=== PATIENT | female | born 1980 ===

== ENCOUNTER 2017-10-29 02:43 | Emergency (ER) | payer MEDICAID ==
[2017-10-29 02:46] VITALS: BMI 24.8
--- NOTE | 2017-10-29 03:10 | ED PDOC ---
Arrival/HPI <Brenton Braun - Last Filed: 10/29/17 04:18> <Arron Thrasher - Last Filed: 10/29/17 04:23> - General Chief Complaint: Flu-like Symptoms - History of Present Illness Narrative History of Present Illness (Text): 10/29/17 03:06 Pt is a 37 yo F with PMH of asthma and anemia presents to ED with flu-like symptoms. Pt states that her daughter has been sick and was diagnosed yesterday with the flu by her wire winder. Pt was also seen by the wire winder and was told she had strep throat. Pt was prescribed clarithromycin and mucinex. Pt has only taken one dose of each medication, but started to feel worse and came to ED for evaluation. Pt complains of temporal sinus pressure, nasal congestion, sore throat, dry cough, shortness of breath, diarrhea, body aches, LIN, nausea, decreased appetite, and subjective fever. Pt denied CP, vomiting, abdominal pain , dysuria, dizziness, or ear pain. (Brenton Braun) Past Medical History - Provider Review Nursing Documentation Reviewed: Yes - Cardiac Hx Cardiac Disorders: No - Pulmonary Hx Asthma: Yes - Neurological Hx Neurological Disorder: No - HEENT Hx HEENT Disorder: No - Renal Hx Renal Disorder: No - Endocrine/Metabolic Hx Endocrine Disorders: No - Hematological/Oncological Hx Blood Disorders: No - Integumentary Hx Dermatological Disorder: No - Musculoskeletal/Rheumatological Hx Musculoskeletal Disorders: No - Gastrointestinal Hx Gastrointestinal Disorders: No - Genitourinary/Gynecological Hx Genitourinary Disorders: No - Psychiatric Hx Psychophysiologic Disorder: No Hx Substance Use: No <Brenton Braun - Last Filed: 10/29/17 04:18> Family/Social History - Physician Review Nursing Documentation Reviewed: Yes Family/Social History: No Known Family HX Smoking Status: Never Smoked Hx Alcohol Use: No Hx Substance Use: No <Brenton Braun - Last Filed: 10/29/17 04:18> Allergies/Home Meds <Brenton Braun - Last Filed: 10/29/17 04:18> <Arron Thrasher - Last Filed: 10/29/17 04:23> Allergies/Adverse Reactions: Allergies No Known Allergies Allergy (Verified 10/29/17 02:46) Home Medications: Home Meds Medication Instructions Recorded Confirmed Clarithromycin [Biaxin Filmtab] 250 mg PO BID 10/29/17 10/29/17 guaiFENesin/Dextromethorphan 1 tab PO Q12 10/29/17 10/29/17 [guaiFENesin/DM 600-30 mg] Review of Systems - Physician Review All systems were reviewed & negative as marked: Yes - Review of Systems Constitutional: Fatigue, Fevers Eyes: Normal ENT: Sore Throat, Sinus Congestion Respiratory: SOB, Cough. absent: Sputum, Wheezing Cardiovascular: Normal Gastrointestinal: Diarrhea, Nausea. absent: Abdominal Pain, Vomiting Genitourinary Female: Normal Musculoskeletal: Myalgias Skin: Normal Neurological: Normal Endocrine: Normal Hemo/Lymphatic: Normal Psychiatric: Normal <Brenton Braun - Last Filed: 10/29/17 04:18> Physical Exam Vital Signs Reviewed: Yes Temperature: Febrile Blood Pressure: Normal Pulse: Regular Respiratory Rate: Normal Appearance: Positive for: Ill-Appearing Pain Distress: None Mental Status: Positive for: Alert and Oriented X 3 - Systems Exam Head: Present: Atraumatic, Normocephalic, Tenderness (temporal sinuses) Extroacular Muscles: Present: EOMI Conjunctiva: Present: Normal Ears: Present: Normal Mouth: Present: Moist Mucous Membranes Pharnyx: Present: ERYTHEMA, TONSILS ENLARGED. No: EXUDATE, Uvular Deviation, Muffled/Hoarse Voice Nose (External): Present: Atraumatic, Other (erythema) Nose (Internal): Present: Boggy Neck: Present: Normal Range of Motion Respiratory/Chest: Present: Clear to Auscultation. No: Respiratory Distress, Wheezes, Rales, Rhonchi Cardiovascular: Present: Regular Rate and Rhythm, Normal S1, S2. No: Murmurs, Rub, Gallop Abdomen: No: Tenderness, Distention, Peritoneal Signs, Rebound, Guarding Back: Present: Normal Inspection Upper Extremity: Present: Normal Inspection Lower Extremity: Present: Normal Inspection Neurological: Present: GCS=15, CN II-XII Intact Skin: Present: Warm, Dry, Normal Color Psychiatric: Present: Alert, Oriented x 3 <Brenton Braun - Last Filed: 10/29/17 04:18> Vital Signs Temp Pulse Resp BP Pulse Ox 10/29/17 03:43 88 17 124/86 97 02/23/18 03:17 100.1 F H 02/23/18 02:47 100.1 F H 99 H 20 114/66 96 Medical Decision Making <Brenton Braun - Last Filed: 10/29/17 04:18> <Arron Thrsaher - Last Filed: 10/29/17 04:23> ED Course and Treatment: 10/29/17 03:12 Assessment: 37 yo F with PMH of ashtma and anemia presents to ED with flu-lik symptoms. Plan: - Labs - Rapid strep - Influenza swab - Tylenol 10/29/17 04:00 Influenza and rapid strep test negative. 10/29/17 04:12 Discussed results with patient. Despite negative influenza result, will treat with Tamiflu due to possible false negative. Advised patient to maintain adequate hydration and complete course of antibiotics already prescribed to her. Symptomatic management with Flonase, tylenol, and mucinex. (Brenton Braun) 10/29/17 03:19: Amanda Malloy is a 37 year old female who presents to the emergency department complaining of flu-like symptoms. In agreement with resident note, which includes further HPI details. Patient was seen and evaluated with resident, came up with plan and treatment together. (Arron Thrasher) - Lab Interpretations Lab Results: 10/29/17 03:19 10/29/17 03:19 Lab Results 10/29/17 03:19: Grp A Beta Strep Ag Negative 10/29/17 03:19: Sodium 138, Potassium 3.8, Chloride 102, Carbon Dioxide 23, Anion Gap 17, BUN 9, Creatinine 0.7, Est GFR ( Amer) > 60, Est GFR (Non- Af Amer) > 60, Random Glucose 110, Calcium 9.2, Total Bilirubin 0.5, AST 29, ALT 31, Alkaline Phosphatase 65, Total Protein 7.6, Albumin 4.2, Globulin 3.4, Albumin/Globulin Ratio 1.2 10/29/17 03:19: WBC 5.3, RBC 4.26, Hgb 12.9, Hct 39.9, MCV 93.7, MCH 30.3, MCHC 32.3, RDW 12.7, Plt Count 255, MPV 10.5, Gran % 82.0 H, Lymph % (Auto) 8.5 L, [place] % (Auto) 8.7 H, Eos % (Auto) 0.6 L, Baso % (Auto) 0.2, Gran # 4.33, Lymph # (Auto) 0.5 L, [place] # (Auto) 0.5, Eos # (Auto) 0.0, Baso # (Auto) 0.01 10/29/17 03:19: Influenza Typ A,B (EIA) Negative for flu a/b - Medication Orders Current Medication Orders: Discontinued Medications Acetaminophen (Tylenol 325mg Tab) 650 mg PO STAT STA Stop: 10/29/17 03:06 Last Admin: 10/29/17 03:17 Dose: 650 mg MAR Pain/Vitals Document 10/29/17 03:17 IT (Rec: 10/29/17 03:17 IT [facility] [id number]) Pain Reassessment Is This A Pain ReAssessment? No Sleep Is patient sleeping during reassessment? No Presence of Pain Presence of Pain Yes Vitals Temperature (97.6 F-99.6 F) 100.1 F Temperature Source Oral Dexamethasone (Decadron Inj) 10 mg IVP STAT STA Stop: 10/29/17 03:31 Last Admin: 10/29/17 03:40 Dose: 10 mg IVP Administration Document 10/29/17 03:40 IT (Rec: 10/29/17 03:40 IT [facility] [id number]) Charges for Administration # of IVP Administrations 1 Oseltamivir Phosphate (Tamiflu Cap) 75 mg PO STAT STA PRN Reason: Protocol Stop: 10/29/17 04:13 Last Admin: 10/29/17 04:21 Dose: 75 mg - PA / LEARNING TECHNOLOGIST / Resident Statement STACIE has reviewed & agrees with the documentation as recorded. STACIE has examined the patient and agrees with the treatment plan. <Arron Thrasher - Last Filed: 10/29/17 04:23> Disposition/Present on Arrival - Present on Arrival Any Indicators Present on Arrival: No History of DVT/PE: No History of Uncontrolled Diabetes: No Urinary Catheter: No History of Decub. Ulcer: No History Surgical Site Infection Following: None - Disposition Have Diagnosis and Disposition been Completed?: Yes Disposition Time: 04:02 Patient Plan: Discharge <Brenton Braun - Last Filed: 10/29/17 04:18> <Arron Thrasher - Last Filed: 10/29/17 04:23> - Disposition Diagnosis: URI (upper respiratory infection) Disposition: HOME/ ROUTINE Patient Problems: Current Active Problems Problem Status Onset URI (upper respiratory infection) Acute Condition: STABLE Discharge Instructions (ExitCare): Viral Upper Respiratory Infection, Adult (DC ) Additional Instructions: 1. Complete 5 day course of Tamiflu 2. Complete antibiotics from PMD 3. Maintain adequate hydration 4. Increase diet as tolerated 5. Use over the counter tylenol for fever/body aches 6. Use Flonase as needed for nasal congestion 7. Follow up with PMD Prescriptions: Fluticasone Nasal [Flonase] 1 spr NS DAILY PRN #1 bottle PRN Reason: Sinus Symptoms Oseltamivir Phosphate [Tamiflu] 75 mg PO BID #9 capsule Forms: [employer] ([place]), WORK NOTE
[2017-10-29 03:43] VITALS: RESP 17
[2017-10-29 03:43] LABS: ALB/GLOB RATIO 1.2 (1.1-1.8); ALBUMIN 4.2 g/dL (3.0-4.8); ALT/SGPT 31 U/L (7-56); AST/SGOT 29 U/L (14-36); BLOOD UREA NITROGEN 9 mg/dL (7-21); CALCIUM 9.2 mg/dL (8.4-10.5); GFR AFRICAN-AMERICAN > 60; GFR NON-AFRICAN AMERICAN > 60
[2017-10-29 03:59] LABS: BASO # 0.01 K/mm3 (0.0-2.0); BASO % 0.2 % (0.0-3.0); EOS % 0.6 % (1.5-5.0); GRAN # 4.33 (1.4-6.5); HEMOGLOBIN 12.9 g/dL (12.0-16.0); LYMPH # 0.5 (1.2-3.4); LYMPH % 8.5 % (22.0-35.0); MEAN CELL VOLUME 93.7 fl (80.0-105.0); MEAN CORPUSCULAR HEMOGLOBIN 30.3 pg (25.0-35.0); MEAN CORPUSCULAR HGB CONC 32.3 g/dl (31.0-37.0); MEAN PLATELET VOLUME 10.5 fl (7.0-11.0); MONO # 0.5 (0.1-0.6); MONO % 8.7 % (1.0-6.0); RBC 4.26 10^6/uL (3.5-6.1); RED CELL DISTRIBUTION WIDTH 12.7 % (11.5-14.5); WHITE BLOOD COUNT 5.3 10^3/ul (4.5-11.0)
[2017-10-29 04:25] VITALS: BP 115/75; PULSE 82; TEMP 99.1; O2SAT 98
== END 2017-10-29 04:25 | disposition home or self-care (01) ==
LOC: ED 02:43 → MERGE 02:43 → ED 04:25
DX: J06.9 Acute upper respiratory infection, unspecified (principal)
CPT/HCPCS: 80053; 85025; 87070; 87430; 87804; 96374; 99284; J1100

== ENCOUNTER 2017-11-17 20:08 | Inpatient (IN) | payer MEDICAID, OTHER ==
[2017-11-17 20:14] VITALS: BMI 27.0
[2017-11-17] MEDS: Albuterol-Ipratrop 3 mg / 0.5 (3 ml) UD IH SCH ×3 (21:10→21:44)
[2017-11-17 21:40] LABS: BASO # 0.01 K/mm3 (0.0-2.0); BASO % 0.2 % (0.0-3.0); EOS % 0.6 % (1.5-5.0); GRAN # 4.18 (1.4-6.5); GRAN % 80.8 % (50.0-68.0); HEMOGLOBIN 11.9 g/dL (12.0-16.0); LYMPH # 0.6 (1.2-3.4); LYMPH % 11.4 % (22.0-35.0); MEAN CELL VOLUME 89.1 fl (80.0-105.0); MEAN CORPUSCULAR HEMOGLOBIN 29.6 pg (25.0-35.0); MEAN CORPUSCULAR HGB CONC 33.2 g/dl (31.0-37.0); MONO # 0.4 (0.1-0.6); RBC 4.02 10^6/uL (3.5-6.1); RED CELL DISTRIBUTION WIDTH 12.7 % (11.5-14.5); WHITE BLOOD COUNT 5.2 10^3/ul (4.5-11.0)
[2017-11-17 21:56] LABS: ALB/GLOB RATIO 1.2 (1.1-1.8); ALBUMIN 3.8 g/dL (3.0-4.8); ALT/SGPT 24 U/L (7-56); AST/SGOT 27 U/L (14-36); BLOOD UREA NITROGEN 5 mg/dL (7-21); CALCIUM 9.7 mg/dL (8.4-10.5); GFR AFRICAN-AMERICAN > 60; GFR NON-AFRICAN AMERICAN > 60
[2017-11-17] MEDS ORDERED: Sodium Chloride 0.9% 1,000 ML IV STA (22:01)
--- NOTE | 2017-11-17 22:01 | ED PDOC ---
Arrival/HPI - General Historian: Patient - History of Present Illness Symptom Course: Unchanged Activities at Onset: Rest - General Chief Complaint: Shortness Of Breath Time Seen by Provider: 11/17/17 20:20 - History of Present Illness Narrative History of Present Illness (Text): 11/17/17 21:58 Patient is a 37F with a PMH of asthma and recent hospitalization for flu like symptoms. The SOB started today at work and was not associated with any chest pain. She left work and took a nebulized albuterol that she has at home but that did not help her at all. She also took some robitussin with no relief. This SOB has been constant since its onset so she came to the ED. Denies any sick contact or recent travel. No nausea, vomiting, diarrhea, constipation. Patient denies fevers but has been having shaky chills in the ED. (Young Baird) Past Medical History - Infectious Disease Hx of Infectious Diseases: None - Cardiac Hx Cardiac Disorders: No - Pulmonary Hx Asthma: Yes - Neurological Hx Neurological Disorder: No - HEENT Hx HEENT Disorder: No - Renal Hx Renal Disorder: No - Endocrine/Metabolic Hx Endocrine Disorders: No - Hematological/Oncological Hx Anemia: Yes - Integumentary Hx Dermatological Disorder: No - Musculoskeletal/Rheumatological Hx Musculoskeletal Disorders: No - Gastrointestinal Hx Gastrointestinal Disorders: No - Genitourinary/Gynecological Hx Genitourinary Disorders: No - Psychiatric Hx Psychophysiologic Disorder: No Hx Substance Use: No - Surgical History Hx Dilation and Curettage: Yes Other/Comment: sinus surgery. breast cyst - Anesthesia Hx Anesthesia: Yes Hx Anesthesia Reactions: No Hx Malignant Hyperthermia: No Family/Social History Smoking Status: Never Smoked Hx Alcohol Use: No Hx Substance Use: No Allergies/Home Meds Allergies/Adverse Reactions: Allergies No Known Allergies Allergy (Verified 10/29/17 02:46) Home Medications: Home Meds Medication Instructions Recorded Confirmed Albuterol 0.083% [Albuterol 0.083% 1 vial IH QID 11/17/17 11/17/17 Inhal Beena (2.5 mg/3 ml) UD] Albuterol HFA [Ventolin HFA 90 1 puff IH QID PRN 11/17/17 11/17/17 mcg/actuation (8 g)] Review of Systems - Review of Systems Constitutional: absent: Weight Change, Fevers Eyes: Normal ENT: Normal Respiratory: SOB, Cough. absent: Sputum, Wheezing Cardiovascular: absent: Chest Pain Gastrointestinal: Normal Genitourinary Female: Normal Musculoskeletal: Normal Skin: Normal Neurological: Normal Endocrine: Normal Hemo/Lymphatic: Normal Psychiatric: Normal Physical Exam Temperature: Febrile Blood Pressure: Hypotensive Pulse: Tachycardic Respiratory Rate: Tachypneic Appearance: Positive for: Ill-Appearing Pain Distress: None Mental Status: Positive for: Alert and Oriented X 3 - Systems Exam Head: Present: Atraumatic Pupils: Present: PERRL Extroacular Muscles: Present: EOMI Conjunctiva: Present: Normal Mouth: Present: Dry Neck: Present: Normal Range of Motion Respiratory/Chest: Present: Clear to Auscultation, Good Air Exchange. No: Accessory Muscle Use, Wheezes Cardiovascular: Present: Tachycardic Abdomen: Present: Normal Bowel Sounds. No: Tenderness, Distention, Peritoneal Signs Upper Extremity: Present: Normal Inspection. No: Cyanosis Lower Extremity: Present: Normal Inspection. No: Edema Neurological: Present: GCS=15, CN II-XII Intact Skin: Present: Warm, Dry, Normal Color. No: Rashes Psychiatric: Present: Alert, Oriented x 3 Vital Signs Temp Pulse Resp BP 11/17/17 20:14 101.8 F H 115 H 18 108/58 L Medical Decision Making ED Course and Treatment: 11/17/17 22:26 Patient Seen With Resident: In agreement with resident note which contains more details about the patient. Patient was seen and evaluated with resident. Came up with plan and treatment together. (Lm Hall) - Lab Interpretations Lab Results: 11/17/17 21:05 11/17/17 21:05 Lab Results 11/17/17 21:05: Sodium 139, Potassium 3.5 L, Chloride 105, Carbon Dioxide 24, Anion Gap 14, BUN 5 L, Creatinine 0.6 L, Est GFR ( Amer) > 60, Est GFR ( Non-Af Amer) > 60, Random Glucose 104, Calcium 9.7, Total Bilirubin 0.3, AST 27 , ALT 24, Alkaline Phosphatase 57, Total Protein 7.0, Albumin 3.8, Globulin 3.2 , Albumin/Globulin Ratio 1.2 11/17/17 21:05: WBC 5.2, RBC 4.02, Hgb 11.9 L, Hct 35.8 L, MCV 89.1 D, MCH 29.6 , MCHC 33.2, RDW 12.7, Plt Count 250, MPV 10.0, Gran % 80.8 H, Lymph % (Auto) 11.4 L, [place] % (Auto) 7.0 H, Eos % (Auto) 0.6 L, Baso % (Auto) 0.2, Gran # 4.18 , Lymph # (Auto) 0.6 L, [place] # (Auto) 0.4, Eos # (Auto) 0.0, Baso # (Auto) 0.01 - RAD Interpretation Radiology Orders: 11/17/17 20:46 CHEST PORTABLE [RAD] Stat - Medication Orders Current Medication Orders: Sodium Chloride (Sodium Chloride 0.9%) 1,000 mls @ 999 mls/hr IV .Q1H1M STA Stop: 11/17/17 23:01 Vancomycin HCl (Vancomycin 1gm) 1 gm in 250 mls @ 167 mls/hr IVPB STAT STA PRN Reason: Protocol Stop: 11/17/17 23:34 Piperacillin Sod/Tazobactam Sod (Zosyn 3.375 In Ns 100ml) 100 mls @ 200 mls/hr IVPB STAT STA PRN Reason: Protocol Stop: 11/17/17 22:34 Lactated Ringer's (Lactated Ringer's) 1,000 mls @ 999 mls/hr IV .Q1H1M CHRISTO Lactated Ringer's (Lactated Ringer's) 1,000 mls @ 999 mls/hr IV .Q1H1M CHRISTO Potassium Chloride (K-Dur 20 Meq Er Tab) 40 meq PO STAT STA Stop: 11/17/17 22:26 Discontinued Medications Albuterol/Ipratropium (Duoneb 3 Mg/0.5 Mg (3 Ml) Ud) 3 ml IH Q15M CHRISTO Stop: 11/17/17 21:31 Last Admin: 11/17/17 21:44 Dose: 3 ml Azithromycin (Zithromax) 500 mg PO STAT STA PRN Reason: Protocol Stop: 11/17/17 20:47 Last Admin: 11/17/17 21:43 Dose: 500 mg Methylprednisolone (Solu-Medrol) 125 mg IVP STAT STA Stop: 11/17/17 20:48 Last Admin: 11/17/17 21:43 Dose: 125 mg IVP Administration Document 11/17/17 21:43 SS (Rec: 11/17/17 21:43 SS [facility] [id number] Charges for Administration # of IVP Administrations 1 Disposition/Present on Arrival - Present on Arrival History of DVT/PE: No History of Uncontrolled Diabetes: No Urinary Catheter: No History of Decub. Ulcer: No History Surgical Site Infection Following: None - Disposition Referrals: [facility] Deepika Refeliberto, [Primary Care Provider] - Follow up with primary Forms: [employer] ([place])
[2017-11-17] MEDS ORDERED: cefTRIAXone 1 gm 1 GM/100 ML BAG IVPB STA (22:03)
[2017-11-17] MEDS ORDERED: Piperacillin/Tazobact 3.375 gm 100 ML IVPB STA (22:05)
[2017-11-17] MEDS ORDERED: Vancomycin 1gm in NS 250ml 1 GM/250 ML BAG IVPB STA (22:05)
[2017-11-17] MEDS ORDERED: Lactated Ringer's 1,000 ML IV SCH (22:30)
[2017-11-17] MEDS ORDERED: Albuterol-Ipratrop 3 mg / 0.5 (3 ml) UD IH PRN (22:43)
[2017-11-17] MEDS: Potassium Chloride 20 mEq ER Tab PO STA ×2 (22:49→22:53)
[2017-11-17] MEDS ORDERED: guaiFENesin DM 100 mg-10 mg/5 ml UD PO PRN (22:51)
[2017-11-17 22:52] LABS: VENOUS BLOOD GAS PO2 158 mm/Hg (30-55); VENOUS BLOOD PH 7.48 (7.32-7.43)
[2017-11-17] MEDS: Lactated Ringer's 1,000 ML IV SCH (22:52)
[2017-11-17 23:44] LABS: PH,URINE 8.5 (4.7-8.0); URINE BILIRUBIN NEGATIVE (NEGATIVE); URINE BLOOD NEGATIVE (NEGATIVE); URINE GLUCOSE (UA) NEGATIVE (NEGATIVE); URINE LEUKOCYTE ESTERASE NEGATIVE Leu/uL (NEGATIVE); URINE PROTEIN NEGATIVE mg/dL (<30 mg/dL)
[2017-11-17 23:45] LABS: URINE APPEARANCE SL CLOUDY (CLEAR); URINE COLOR YELLOW (YELLOW)
[2017-11-17 23:47] LABS: HCG,QUALITATIVE URINE NEGATIVE (NEGATIVE)
--- NOTE | 2017-11-18 00:52 | CP.PCM.HP ---
<Michel Johnson - Last Filed: 11/18/17 01:39> History of Present Illness - History of Present Illness History of Present Illness: Michel Johnson PGY1 H&P Note for Hospitalist Service cc: sob and feeling sick x2 days Ms. Malloy is a 37yo F with a PMH of asthma and anemia who presents with a cough, shortness of breath, generalized body aches and some chest discomfort since Wednesday with fevers that developed today. she states that her daughter at home has also been sick with similar complaints. she is nauseous but denies vomiting or diarrhea. she denies recent travel. Of note, the patient was seen in ED 3 weeks ago for similar symptoms and was d/c with Flonase and Tamiflu. 12- pt ROS was reviewed and is otherwise unremarkable. PMH: as above PSH: D&C for cyst removal, benign breast cyst excision, nose surgery Meds: tried robitussin but didn't help NKDA SHx: denies tobacco, ETOH and illicit drug use Present on Admission - Present on Admission Any Indicators Present on Admission: No Review of Systems - Review of Systems All systems: reviewed and no additional remarkable complaints except (as per HPI ) Past Patient History - Infectious Disease Hx of Infectious Diseases: None - Past Medical History & Family History Past Medical History?: Yes Past Family History: Reviewed and not pertinent - Past Social History Smoking Status: Never Smoked Alcohol: None Drugs: Denies Home Situation {Lives}: With Family - CARDIAC Hx Cardiac Disorders: No - PULMONARY Hx Asthma: Yes - NEUROLOGICAL Hx Neurological Disorder: No - HEENT Hx HEENT Problems: No - RENAL Hx Chronic Kidney Disease: No - ENDOCRINE/METABOLIC Hx Endocrine Disorders: No - HEMATOLOGICAL/ONCOLOGICAL Hx Anemia: Yes - INTEGUMENTARY Hx Dermatological Problems: No - MUSCULOSKELETAL/RHEUMATOLOGICAL Hx Musculoskeletal Disorders: No - GASTROINTESTINAL Hx Gastrointestinal Disorders: No - GENITOURINARY/GYNECOLOGICAL Hx Genitourinary Disorders: No - PSYCHIATRIC Hx Psychophysiologic Disorder: No Hx Substance Use: No - SURGICAL HISTORY Hx Surgeries: Yes Hx Breast Biopsy: Yes Hx Dilation and Curettage: Yes Other/Comment: sinus surgery. breast cyst - ANESTHESIA Hx Anesthesia: Yes Hx Anesthesia Reactions: No Hx Malignant Hyperthermia: No Meds Allergies/Adverse Reactions: Allergies Allergy/AdvReac Type Severity Reaction Status Date / Time No Known Allergies Allergy Verified 10/29/17 02:46 Physical Exam - Constitutional Appears: Toxic, No Acute Distress - Head Exam Head Exam: NORMAL INSPECTION - Eye Exam Eye Exam: EOMI, Normal appearance, PERRL - ENT Exam ENT Exam: Mucous Membranes Moist - Neck Exam Neck exam: Positive for: Normal Inspection - Respiratory Exam Respiratory Exam: NORMAL BREATHING PATTERN. absent: Rales, Rhonchi, Wheezes - Cardiovascular Exam Cardiovascular Exam: Tachycardia, +S1, +S2 - GI/Abdominal Exam GI & Abdominal Exam: Soft. absent: Distended, Tenderness - Extremities Exam Extremities exam: Positive for: normal inspection. Negative for: pedal edema - Back Exam Back exam: NORMAL INSPECTION - Neurological Exam Neurological exam: Alert, CN II-XII Intact, Oriented x3 - Psychiatric Exam Psychiatric exam: Normal Affect, Normal Mood - Skin Skin Exam: Normal Color, Warm Results - Vital Signs Recent Vital Signs: Last Vital Signs Temp 101.8 F H 11/17/17 20:14 Pulse 123 H 11/17/17 23:35 Resp 20 11/17/17 23:35 BP 110/88 11/17/17 23:35 Pulse Ox 98 11/17/17 23:35 - Labs Result Diagrams: 11/17/17 21:05 11/17/17 21:05 Assessment & Plan - Assessment and Plan (Free Text) Assessment: 37yo F with a PMH of anemia and asthma presenting w/ flu-like symptoms found to have sepsis 2/2 influeza. CODE SEPSIS was not called in the ED but was on the floors. Plan: 1. Sepsis 2/2 Influeza - lactate 4.6, tachycardia and fever noted - Vanc, Zosyn and Zithromax given in ED - has received 2L LR and 1L NS boluses - CXR showed some congestion - CT chest ordered by ED - will cont Zithromax - start Tamiflu - cont NS @ 150 - tylenol prn fevers - no leukocytosis noted - robitussin prn - droplet isolation for precautions - ID consulted, recs appreciated 2. Hx asthma - given solumedrol and duoneb tx in ED - no wheezing or respiratory distress noted at this time - cont duoneb CHRISTO and PRN 3. Hx Anemia - H/H is stable - cont to monitor 4. Hypokalemia - repleted - continue to monitor for electrolyte abnormalities Regular diet PTX/SCDs for GI/DVT ppx Patient was seen, examined and discussed with attending, Dr. Sveta Johnson PGY1 <Gato Turcios N - Last Filed: 11/19/17 00:16> Results - Vital Signs Recent Vital Signs: Last Vital Signs Temp 98.1 F 11/18/17 22:51 Pulse 79 11/18/17 22:51 Resp 16 11/18/17 22:51 BP 112/73 11/18/17 22:51 Pulse Ox 95 11/18/17 22:51 - Labs Result Diagrams: 11/18/17 05:00 11/18/17 05:00 Labs: Laboratory Results - last 24 hr 11/18/17 11/18/17 11/18/17 01:42 01:45 05:00 WBC 7.0 D RBC 3.75 Hgb 11.1 L Hct 33.4 L MCV 89.1 MCH 29.6 MCHC 33.2 RDW 12.8 Plt Count 227 MPV 9.7 PT INR pO2 72 H VBG pH 7.39 VBG pCO2 34.0 L VBG HCO3 20.6 L VBG Total CO2 21.6 L VBG O2 Sat (Calc) 96.7 H VBG Base Excess -3.6 L VBG Potassium 3.6 Sodium 137.0 Chloride 108.0 H Glucose 153 H Lactate 4.5 H* FiO2 21.0 Potassium Carbon Dioxide Anion Gap BUN Creatinine Est GFR ( Amer) Est GFR (Non-Af Amer) POC Glucose (mg/dL) 137 H Random Glucose Calcium Iron TIBC % Saturation Transferrin Ferritin Total Bilirubin AST ALT Alkaline Phosphatase Total Protein Albumin Globulin Albumin/Globulin Ratio Vitamin B12 Folate Venous Blood Potassium 3.6 Ur L.pneumophila Ag 11/18/17 11/18/17 11/18/17 05:00 05:00 05:00 WBC RBC Hgb Hct MCV MCH MCHC RDW Plt Count MPV PT 15.8 H INR 1.37 H pO2 196 H VBG pH 7.37 VBG pCO2 38.0 L VBG HCO3 22.0 VBG Total CO2 23.2 VBG O2 Sat (Calc) 99.2 H VBG Base Excess -2.9 L VBG Potassium 3.9 Sodium 140 136.0 Chloride 106 109.0 H Glucose 166 H Lactate 3.0 H FiO2 21.0 Potassium 4.0 Carbon Dioxide 22 Anion Gap 16 BUN 4 L Creatinine 0.5 L Est GFR ( Amer) > 60 Est GFR (Non-Af Amer) > 60 POC Glucose (mg/dL) Random Glucose 157 H Calcium 9.3 Iron TIBC % Saturation Transferrin Ferritin Total Bilirubin 0.3 AST 25 ALT 24 Alkaline Phosphatase 51 Total Protein 6.7 Albumin 3.5 Globulin 3.1 Albumin/Globulin Ratio 1.1 Vitamin B12 Folate Venous Blood Potassium 3.9 Ur L.pneumophila Ag 11/18/17 11/18/17 11/18/17 08:19 11:10 11:14 WBC RBC Hgb Hct MCV MCH MCHC RDW Plt Count MPV PT INR pO2 202 H VBG pH 7.38 VBG pCO2 38.0 L VBG HCO3 22.5 VBG Total CO2 23.7 VBG O2 Sat (Calc) 99.4 H VBG Base Excess -2.3 L VBG Potassium 3.9 Sodium 135.0 Chloride 108.0 H Glucose 148 H Lactate 2.4 H FiO2 21.0 Potassium Carbon Dioxide Anion Gap BUN Creatinine Est GFR ( Amer) Est GFR (Non-Af Amer) POC Glucose (mg/dL) Random Glucose Calcium Iron TIBC % Saturation Transferrin 273.30 Ferritin 19.9 Total Bilirubin AST ALT Alkaline Phosphatase Total Protein Albumin Globulin Albumin/Globulin Ratio Vitamin B12 484 Folate 19.9 Venous Blood Potassium 3.9 Ur L.pneumophila Ag 11/18/17 11/18/17 19:25 Unknown WBC RBC Hgb Hct MCV MCH MCHC RDW Plt Count MPV PT INR pO2 VBG pH VBG pCO2 VBG HCO3 VBG Total CO2 VBG O2 Sat (Calc) VBG Base Excess VBG Potassium Sodium Chloride Glucose Lactate FiO2 Potassium Carbon Dioxide Anion Gap BUN Creatinine Est GFR ( Amer) Est GFR (Non-Af Amer) POC Glucose (mg/dL) Random Glucose Calcium Iron 19 L TIBC 341 % Saturation 5 L Transferrin Ferritin Total Bilirubin AST ALT Alkaline Phosphatase Total Protein Albumin Globulin Albumin/Globulin Ratio Vitamin B12 Folate Venous Blood Potassium Ur L.pneumophila Ag Negative
--- NOTE | 2017-11-18 01:16 | CT ---
EXAM: CT Chest Without Intravenous Contrast CLINICAL HISTORY: 37 years old, female; Signs and symptoms; Cough; Symptoms not specified; Additional info: Possible infiltrate r. Middle lobe TECHNIQUE: Axial computed tomography images of the chest without intravenous contrast. All CT scans at this facility use one or more dose reduction techniques, viz.: automated exposure control; ma/kV adjustment per patient size (including targeted exams where dose is matched to indication; i.e. head); or iterative reconstruction technique. Coronal and sagittal reformatted images were created and reviewed. COMPARISON: - CHEST PORTABLE 2017-11-17 22:38 FINDINGS: Limitations: Lack of intravenous contrast. Motion artifact - mild to moderate. Lungs: Minimal peripheral atelectasis/scarring. No consolidation. Pleural space: No pneumothorax. No significant effusion. Heart: No cardiomegaly. No significant pericardial effusion. Bones/joints: No acute fracture. Soft tissues: Unremarkable. Vasculature: Unremarkable. No aneurysm. Lymph nodes: No pathologically enlarged lymph nodes. Kidneys and ureters: Apparent mild caliectasis of kidneys, incompletely imaged. IMPRESSION: 1. No definite CT evidence of pneumonia. 2. Incidental/non-acute findings are described above.
[2017-11-18] MEDS: Potassium Chloride 20 mEq ER Tab PO STA ×2 (01:29)
[2017-11-18 02:20] LABS: VENOUS BLOOD GAS BASE EXCESS -3.6 mmol/L (0.0-2.0); VENOUS BLOOD GAS PO2 72 mm/Hg (30-55); VENOUS BLOOD PH 7.39 (7.32-7.43)
[2017-11-18] MEDS ORDERED: Potassium Chloride 20 mEq ER Tab PO STA (02:24)
[2017-11-18 05:23] LABS: HEMOGLOBIN 11.1 g/dL (12.0-16.0); MEAN CELL VOLUME 89.1 fl (80.0-105.0); MEAN CORPUSCULAR HEMOGLOBIN 29.6 pg (25.0-35.0); MEAN CORPUSCULAR HGB CONC 33.2 g/dl (31.0-37.0); MEAN PLATELET VOLUME 9.7 fl (7.0-11.0); RBC 3.75 10^6/uL (3.5-6.1); RED CELL DISTRIBUTION WIDTH 12.8 % (11.5-14.5)
[2017-11-18] MEDS: Sodium Chloride 0.9% 1,000 ML IV SCH ×4 (05:40→21:18)
[2017-11-18] MEDS: Lactated Ringer's 1,000 ML IV SCH (05:41)
[2017-11-18 05:45] LABS: VENOUS BLOOD GAS BASE EXCESS -2.9 mmol/L (0.0-2.0); VENOUS BLOOD GAS PO2 196 mm/Hg (30-55); VENOUS BLOOD PH 7.37 (7.32-7.43)
[2017-11-18 05:46] LABS: ALB/GLOB RATIO 1.1 (1.1-1.8); ALBUMIN 3.5 g/dL (3.0-4.8); ALT/SGPT 24 U/L (7-56); AST/SGOT 25 U/L (14-36); BLOOD UREA NITROGEN 4 mg/dL (7-21); CALCIUM 9.3 mg/dL (8.4-10.5); GFR AFRICAN-AMERICAN > 60; GFR NON-AFRICAN AMERICAN > 60
[2017-11-18 05:48] LABS: INR 1.37 (0.93-1.08); PROTHROMBIN TIME 15.8 SECONDS (9.4-12.5)
--- NOTE | 2017-11-18 06:30 | PCM.SEPTIC ---
Sepsis Progress Note - Reassessment Type Date of Evaluation: 11/18/17 Time of Evaluation: 06:28 Reassessment Type: Non-invasive reassessment - Non Invasive Reassessment Were the most recent vital sign reviewed: Yes Vital Sign (Latest): Temp Pulse Resp BP Pulse Ox 99 F 85 20 110/65 98 11/18/17 06:00 11/18/17 06:00 11/18/17 06:00 11/18/17 06:00 11/18/17 06:00 Cardiovascular: Yes: Regular Rate, Rhythm Respiratory: Yes: Normal Breath Sounds. No: Rales, Rhonchi, Wheezing, Respiratory Distress Capillary Refill: Normal (Less than 2 sec) Skin: Warm
[2017-11-18] MEDS: Albuterol-Ipratrop 3 mg / 0.5 (3 ml) UD IH SCH ×7 (07:08→23:33)
--- NOTE | 2017-11-18 08:23 | RAD ---
HISTORY: SOB COMPARISON: No prior. FINDINGS: LUNGS: No active pulmonary disease. PLEURA: No significant pleural effusion identified, no pneumothorax apparent. CARDIOVASCULAR: Normal. OSSEOUS STRUCTURES: No significant abnormalities. VISUALIZED UPPER ABDOMEN: Normal. OTHER FINDINGS: None. IMPRESSION: No active disease.
[2017-11-18 08:26] LABS: VENOUS BLOOD GAS BASE EXCESS -2.3 mmol/L (0.0-2.0); VENOUS BLOOD GAS PO2 202 mm/Hg (30-55); VENOUS BLOOD PH 7.38 (7.32-7.43)
--- NOTE | 2017-11-18 11:25 | CARD ---
APPROVED REPORT EKG Measurement Heart [id number] <Conclusion> Normal sinus rhythm NSSTW changes RVCD
[2017-11-18 11:38] LABS: IRON 19 ug/dL (45-180)
[2017-11-18 11:47] LABS: % IRON SATURATION 5 % (20-55); TOTAL IRON BINDING CAPACITY 341 ug/dL (265-497)
--- NOTE | 2017-11-18 16:48 | CP.PCM.CON ---
History of Present Illness - History of Present Illness History of Present Illness: 37 year old female with PMH of asthma, anemia came in to [facility] complaining of cough, shortness of breath, wheezing and body aches for the past 2 days, associated with fever and chills. She states that her daughter has been sick prior to this. She denies headache or dizziness, no chest pain, no sore throat, no rhinorrhea, no abdominal pain, no diarrhea, no dysuria. In the ED, rapid flu test is positive for Flu A. CT chest done does not show pneumonia. Infectious Diseases consult is requested to further evaluate and manage. Review of Systems - Review of Systems All systems: reviewed and no additional remarkable complaints except (as per HPI ) Past Patient History - Infectious Disease Hx of Infectious Diseases: None - Past Medical History & Family History Past Medical History?: Yes Past Family History: Reviewed and not pertinent - Past Social History Smoking Status: Never Smoked Alcohol: None Drugs: Denies Home Situation {Lives}: With Family - CARDIAC Hx Cardiac Disorders: No - PULMONARY Hx Asthma: Yes - NEUROLOGICAL Hx Neurological Disorder: No - HEENT Hx HEENT Problems: No - RENAL Hx Chronic Kidney Disease: No - ENDOCRINE/METABOLIC Hx Endocrine Disorders: No - HEMATOLOGICAL/ONCOLOGICAL Hx Anemia: Yes - INTEGUMENTARY Hx Dermatological Problems: No - MUSCULOSKELETAL/RHEUMATOLOGICAL Hx Musculoskeletal Disorders: No - GASTROINTESTINAL Hx Gastrointestinal Disorders: No - GENITOURINARY/GYNECOLOGICAL Hx Genitourinary Disorders: No - PSYCHIATRIC Hx Psychophysiologic Disorder: No Hx Substance Use: No - SURGICAL HISTORY Hx Surgeries: Yes Hx Breast Biopsy: Yes Hx Dilation and Curettage: Yes Other/Comment: sinus surgery. breast cyst - ANESTHESIA Hx Anesthesia: Yes Hx Anesthesia Reactions: No Hx Malignant Hyperthermia: No Meds Allergies/Adverse Reactions: Allergies Allergy/AdvReac Type Severity Reaction Status Date / Time No Known Allergies Allergy Verified 10/29/17 02:46 - Medications Medications: Current Medications Acetaminophen (Tylenol 325mg Tab) 650 mg PO Q4 PRN PRN Reason: Fever >100.4 F Albuterol/Ipratropium (Duoneb 3 Mg/0.5 Mg (3 Ml) Ud) 3 ml IH Q2H PRN PRN Reason: Shortness of Breath Albuterol/Ipratropium (Duoneb 3 Mg/0.5 Mg (3 Ml) Ud) 3 ml IH [id number] CHRISTO Azithromycin (Zithromax) 500 mg PO DAILY [facility] PRN Reason: Protocol Guaifenesin/Dextromethorphan (Robitussin Dm) 5 ml PO Q4H PRN PRN Reason: Cough Sodium Chloride (Sodium Chloride 0.9%) 1,000 mls @ 150 mls/hr IV .Q6H40M [facility] Last Admin: 11/18/17 05:40 Dose: 150 mls/hr Ondansetron HCl (Zofran Inj) 4 mg IVP Q4H PRN PRN Reason: Nausea/Vomiting Oseltamivir Phosphate (Tamiflu Cap) 75 mg PO BID [facility] PRN Reason: Protocol Stop: 11/22/17 22:42 Last Admin: 11/17/17 22:45 Dose: 75 mg Physical Exam - Constitutional Appears: Non-toxic, No Acute Distress - Head Exam Head Exam: NORMAL INSPECTION - Neck Exam Neck exam: Negative for: Meningismus - Respiratory Exam Respiratory Exam: absent: Rales, Rhonchi - Cardiovascular Exam Cardiovascular Exam: +S1, +S2 - GI/Abdominal Exam GI & Abdominal Exam: Soft. absent: Tenderness Results - Vital Signs Recent Vital Signs: Last Vital Signs Temp 98.7 F 11/18/17 02:42 Pulse 103 H 11/18/17 02:42 Resp 19 11/18/17 02:42 BP 117/61 11/18/17 02:42 Pulse Ox 97 11/18/17 02:42 - Labs Result Diagrams: 11/18/17 05:00 11/18/17 05:00 Labs: Laboratory Results - last 24 hr 11/18/17 11/18/17 11/18/17 01:42 01:45 05:00 WBC 7.0 D RBC 3.75 Hgb 11.1 L Hct 33.4 L MCV 89.1 MCH 29.6 MCHC 33.2 RDW 12.8 Plt Count 227 MPV 9.7 PT INR pO2 72 H VBG pH 7.39 VBG pCO2 34.0 L VBG HCO3 20.6 L VBG Total CO2 21.6 L VBG O2 Sat (Calc) 96.7 H VBG Base Excess -3.6 L VBG Potassium 3.6 Sodium 137.0 Chloride 108.0 H Glucose 153 H Lactate 4.5 H* FiO2 21.0 Potassium Carbon Dioxide Anion Gap BUN Creatinine Est GFR ( Amer) Est GFR (Non-Af Amer) POC Glucose (mg/dL) 137 H Random Glucose Calcium Total Bilirubin AST ALT Alkaline Phosphatase Total Protein Albumin Globulin Albumin/Globulin Ratio Venous Blood Potassium 3.6 11/18/17 11/18/17 11/18/17 05:00 05:00 05:00 WBC RBC Hgb Hct MCV MCH MCHC RDW Plt Count MPV PT 15.8 H INR 1.37 H pO2 196 H VBG pH 7.37 VBG pCO2 38.0 L VBG HCO3 22.0 VBG Total CO2 23.2 VBG O2 Sat (Calc) 99.2 H VBG Base Excess -2.9 L VBG Potassium 3.9 Sodium 140 136.0 Chloride 106 109.0 H Glucose 166 H Lactate 3.0 H FiO2 21.0 Potassium 4.0 Carbon Dioxide 22 Anion Gap 16 BUN 4 L Creatinine 0.5 L Est GFR ( Amer) > 60 Est GFR (Non-Af Amer) > 60 POC Glucose (mg/dL) Random Glucose 157 H Calcium 9.3 Total Bilirubin 0.3 AST 25 ALT 24 Alkaline Phosphatase 51 Total Protein 6.7 Albumin 3.5 Globulin 3.1 Albumin/Globulin Ratio 1.1 Venous Blood Potassium 3.9 Assessment & Plan - Assessment and Plan (Free Text) Plan: Assessment systemic viral illness with Influenza, with asthma exacerbation asthma anemia Plan Started Tamiflu and Zithromax and will monitor clinically
[2017-11-18 17:07] LABS: FERRITIN 19.9 ng/mL
[2017-11-18 17:37] LABS: FOLATE 19.9 ng/mL
[2017-11-18] MEDS ORDERED: POLYETHYLENE GLYCOL 3350 17 GM/Dose PACKET PO ONE (22:45)
[2017-11-19] MEDS: Sodium Chloride 0.9% 1,000 ML IV SCH ×4 (00:10→09:45)
[2017-11-19] MEDS: Albuterol-Ipratrop 3 mg / 0.5 (3 ml) UD IH SCH ×3 (06:46→11:31)
[2017-11-19 07:08] LABS: MEAN CELL VOLUME 90.6 fl (80.0-105.0); MEAN CORPUSCULAR HEMOGLOBIN 29.4 pg (25.0-35.0); MEAN CORPUSCULAR HGB CONC 32.5 g/dl (31.0-37.0); MEAN PLATELET VOLUME 9.7 fl (7.0-11.0); RBC 3.4 10^6/uL (3.5-6.1); RED CELL DISTRIBUTION WIDTH 13.1 % (11.5-14.5); WHITE BLOOD COUNT 6.8 10^3/ul (4.5-11.0)
[2017-11-19 07:21] LABS: INR 1.14 (0.93-1.08); PROTHROMBIN TIME 13.1 SECONDS (9.4-12.5)
[2017-11-19 07:43] VITALS: BP 122/76; PULSE 61; RESP 20; TEMP 97.7; O2SAT 98
[2017-11-19 07:45] LABS: ALB/GLOB RATIO 1.1 (1.1-1.8); ALBUMIN 2.9 g/dL (3.0-4.8); ALT/SGPT 37 U/L (7-56); AST/SGOT 38 U/L (14-36); BLOOD UREA NITROGEN 9 mg/dL (7-21); CALCIUM 8.6 mg/dL (8.4-10.5); GFR AFRICAN-AMERICAN > 60; GFR NON-AFRICAN AMERICAN > 60
[2017-11-19] MEDS ORDERED: POLYETHYLENE GLYCOL 3350 17 GM/Dose PACKET PO SCH (10:00)
--- NOTE | 2017-11-19 13:09 | CP.PCM.DIS ---
Provider - Provider Date of Admission: 11/17/17 23:39 Attending physician: Sivan Turcios MD Consults: ID: Dr. [email or web address] Time Spent in preparation of Discharge (in minutes): 45 Hospital Course - Lab Results Lab Results: Micro Results 11/18/17 02:00 Sputum Gram Stain - Final Most Recent Lab Values WBC 6.8 10^3/ul (4.5-11.0) 11/19/17 06:45 RBC 3.40 10^6/uL (3.5-6.1) L 11/19/17 06:45 Hgb 10.0 g/dL (12.0-16.0) L 11/19/17 06:45 Hct 30.8 % (36.0-48.0) L 11/19/17 06:45 MCV 90.6 fl (80.0-105.0) 11/19/17 06:45 MCH 29.4 pg (25.0-35.0) 11/19/17 06:45 MCHC 32.5 g/dl (31.0-37.0) 11/19/17 06:45 RDW 13.1 % (11.5-14.5) 11/19/17 06:45 Plt Count 186 10^3/uL (120.0-450.0) 11/19/17 06:45 MPV 9.7 fl (7.0-11.0) 11/19/17 06:45 Gran % 80.8 % (50.0-68.0) H 11/17/17 21:05 Lymph % (Auto) 11.4 % (22.0-35.0) L 11/17/17 21:05 Elliott % (Auto) 7.0 % (1.0-6.0) H 11/17/17 21:05 Eos % (Auto) 0.6 % (1.5-5.0) L 11/17/17 21:05 Baso % (Auto) 0.2 % (0.0-3.0) 11/17/17 21:05 Gran # 4.18 (1.4-6.5) 11/17/17 21:05 Lymph # (Auto) 0.6 (1.2-3.4) L 11/17/17 21:05 Elliott # (Auto) 0.4 (0.1-0.6) 11/17/17 21:05 Eos # (Auto) 0.0 (0.0-0.7) 11/17/17 21:05 Baso # (Auto) 0.01 K/mm3 (0.0-2.0) 11/17/17 21:05 PT 13.1 SECONDS (9.4-12.5) H 11/19/17 06:45 INR 1.14 (0.93-1.08) H 11/19/17 06:45 pO2 202 mm/Hg (30-55) H 11/18/17 08:19 VBG pH 7.38 (7.32-7.43) 11/18/17 08:19 VBG pCO2 38.0 (40-60) L 11/18/17 08:19 VBG HCO3 22.5 mmol/l (21-28) 11/18/17 08:19 VBG Total CO2 23.7 mmol.L (22-28) 11/18/17 08:19 VBG O2 Sat (Calc) 99.4 % (40-65) H 11/18/17 08:19 VBG Base Excess -2.3 mmol/L (0.0-2.0) L 11/18/17 08:19 VBG Potassium 3.9 mmol/L (3.6-5.2) 11/18/17 08:19 Sodium 135.0 mmol/L (132-148) 11/18/17 08:19 Chloride 108.0 mmol/L (98-107) H 11/18/17 08:19 Glucose 148 mg/dl (65-105) H 11/18/17 08:19 Lactate 2.4 mmol/L (0.7-2.1) H 11/18/17 08:19 FiO2 21.0 % 11/18/17 08:19 Sodium 140 mmol/L (132-148) 11/19/17 06:45 Potassium 3.9 mmol/L (3.6-5.0) 11/19/17 06:45 Chloride 110 mmol/L (98-107) H 11/19/17 06:45 Carbon Dioxide 23 mmol/L (21-33) 11/19/17 06:45 Anion Gap 11 (10-20) 11/19/17 06:45 BUN 9 mg/dL (7-21) 11/19/17 06:45 Creatinine 0.6 mg/dl (0.7-1.2) L 11/19/17 06:45 Est GFR ( Amer) > 60 11/19/17 06:45 Est GFR (Non-Af Amer) > 60 11/19/17 06:45 POC Glucose (mg/dL) 137 mg/dL (65-110) H 11/18/17 01:42 Random Glucose 80 mg/dL (70-110) 11/19/17 06:45 Calcium 8.6 mg/dL (8.4-10.5) 11/19/17 06:45 Iron 19 ug/dL (45-180) L 11/18/17 Unknown TIBC 341 ug/dL (265-497) 11/18/17 Unknown % Saturation 5 % (20-55) L 11/18/17 Unknown Transferrin 273.30 mg/dL (206-381) 11/18/17 11:14 Ferritin 19.9 ng/mL 11/18/17 11:10 Total Bilirubin < 0.1 mg/dL (0.2-1.3) L 11/19/17 06:45 AST 38 U/L (14-36) H D 11/19/17 06:45 ALT 37 U/L (7-56) 11/19/17 06:45 Alkaline Phosphatase 47 U/L (38-126) 11/19/17 06:45 Total Protein 5.5 g/dL (5.8-8.3) L 11/19/17 06:45 Albumin 2.9 g/dL (3.0-4.8) L 11/19/17 06:45 Globulin 2.6 gm/dL 11/19/17 06:45 Albumin/Globulin Ratio 1.1 (1.1-1.8) 11/19/17 06:45 Vitamin B12 484 pg/mL (239-931) 11/18/17 11:10 Folate 19.9 ng/mL 11/18/17 11:10 Procalcitonin < 0.05 NG/ML (0.19-0.49) L 11/17/17 21:05 Venous Blood Potassium 3.9 mmol/L (3.6-5.2) 11/18/17 08:19 Urine Color Yellow (YELLOW) 11/17/17 21:38 Urine Appearance Sl cloudy (CLEAR) 11/17/17 21:38 Urine pH 8.5 (4.7-8.0) 11/17/17 21:38 Ur Specific [place] 1.015 (1.005-1.035) 11/17/17 21:38 Urine Protein Negative mg/dL (<30 mg/dL) 11/17/17 21:38 Urine Glucose (UA) Negative mg/dL (NEGATIVE) 11/17/17 21:38 Urine Ketones Negative mg/dL (NEGATIVE) 11/17/17 21:38 Urine Blood Negative (NEGATIVE) 11/17/17 21:38 Urine Nitrate Negative (NEGATIVE) 11/17/17 21:38 Urine Bilirubin Negative (NEGATIVE) 11/17/17 21:38 Urine Urobilinogen 1.0 E.U./dL (<1 E.U./dL) H 11/17/17 21:38 Ur Leukocyte Esterase Negative Mauro/uL (NEGATIVE) 11/17/17 21:38 Urine HCG, Qual Negative (NEGATIVE) 11/17/17 21:38 HIV 1&2 Ag/Ab, 4th Gen Nonreactive (Nonreactive) 11/18/17 08:00 Influenza Typ A,B (EIA) Pos for influenza a (NEGATIVE) H 11/17/17 22:56 Ur L.pneumophila Ag Negative (NEGATIVE) 11/18/17 19:25 - Hospital Course Hospital Course: 37F presenting for cough, dyspnea, myalgias, chest pain for 3 days and fever for 1 day. Sick contacts include daughter, who has similar issues. Had a fever, tachycardia on arrival. Sats are good. No leukocytosis. Pt presentation concerning for sepsis 2/2 to influenza and possible pneumonia 11/18 1am: Code sepsis once pt was on floors. 11/19: Patient was much improved, deemed stable for discharge on tamiflu, azithro and miralax. Patient needed a refill on her inhaler Rx, was given one Discharge Exam - Head Exam Head Exam: NORMAL INSPECTION - Eye Exam Eye Exam: EOMI, Normal appearance, PERRL Pupil Exam: NORMAL ACCOMODATION, PERRL - Respiratory Exam Respiratory Exam: Clear to PA & Lateral, NORMAL BREATHING PATTERN, UNREMARKABLE - Cardiovascular Exam Cardiovascular Exam: REGULAR RHYTHM. absent: Diastolic murmur, Systolic Murmur - GI/Abdominal Exam GI & Abdominal Exam: Normal Bowel Sounds, Unremarkable - Neurological Exam Neurological exam: Alert, CN II-XII Intact, Normal Gait, Oriented x3, Reflexes Normal - Psychiatric Exam Psychiatric exam: Normal Affect, Normal Mood - Skin Skin Exam: Dry, Intact, Normal Color, Warm Discharge Plan - Discharge Medications Prescriptions: Albuterol HFA [Ventolin HFA 90 mcg/actuation (8 g)] 1 puff IH QID PRN #1 inhaler PRN Reason: Shortness Of Breath Azithromycin [Zithromax] 500 mg PO DAILY #10 tab Oseltamivir [Tamiflu Cap] 75 mg PO BID #10 cap Polyethylene Glycol 3350 [Miralax] 17 gm PO BID #32 packet - Follow Up Plan Condition: GOOD Disposition: HOME/ ROUTINE Patient education suggested?: Yes Instructions: High Fiber Diet, Flu, Adult (DC) Additional Instructions: Take all medication as prescribed. Complete all dosages.
--- NOTE | 2017-11-19 17:31 | CP.PCM.PN ---
Subjective - Date & Time of Evaluation Date of Evaluation: 11/19/17 Time of Evaluation: 12:25 - Subjective Subjective: Comfortable, no more body aches, no nausea, no diarrhea, no fevers. Objective - Vital Signs/Intake and Output Vital Signs (last 24 hours): Temp Pulse Resp BP Pulse Ox 97.7 F 61 20 122/76 98 11/19/17 07:43 11/19/17 07:43 11/19/17 07:43 11/19/17 07:43 11/19/17 07:43 Intake and Output: 11/19/17 11/19/17 06:59 18:59 Intake Total 4460 Balance 4460 - Medications Medications: Current Medications Acetaminophen (Tylenol 325mg Tab) 650 mg PO Q4 PRN PRN Reason: Fever >100.4 F Last Admin: 11/18/17 23:11 Dose: 650 mg Albuterol/Ipratropium (Duoneb 3 Mg/0.5 Mg (3 Ml) Ud) 3 ml IH Q2H PRN PRN Reason: Shortness of Breath Albuterol/Ipratropium (Duoneb 3 Mg/0.5 Mg (3 Ml) Ud) 3 ml IH [id number] [facility] Last Admin: 11/19/17 07:45 Dose: 3 ml Azithromycin (Zithromax) 500 mg PO DAILY [facility] PRN Reason: Protocol Last Admin: 11/18/17 11:00 Dose: 500 mg Guaifenesin/Dextromethorphan (Robitussin Dm) 5 ml PO Q4H PRN PRN Reason: Cough Sodium Chloride (Sodium Chloride 0.9%) 1,000 mls @ 150 mls/hr IV .Q6H40M [facility] Last Admin: 11/19/17 06:40 Dose: 150 mls/hr Ondansetron HCl (Zofran Inj) 4 mg IVP Q4H PRN PRN Reason: Nausea/Vomiting Oseltamivir Phosphate (Tamiflu Cap) 75 mg PO BID [facility] PRN Reason: Protocol Stop: 11/22/17 22:42 Last Admin: 11/18/17 17:13 Dose: 75 mg Polyethylene Glycol (Miralax) 17 gm PO BID [facility] - Labs Labs: 11/19/17 06:45 11/19/17 06:45 PT 13.1 SECONDS (9.4-12.5) H 11/19/17 06:45 INR 1.14 (0.93-1.08) H 11/19/17 06:45 - Constitutional Appears: Non-toxic, Chronically Ill - Head Exam Head Exam: NORMAL INSPECTION - Neck Exam Neck Exam: absent: Meningismus - Respiratory Exam Respiratory Exam: Decreased Breath Sounds. absent: Rales - Cardiovascular Exam Cardiovascular Exam: +S1, +S2 - GI/Abdominal Exam GI & Abdominal Exam: Soft. absent: Tenderness Assessment and Plan - Assessment and Plan (Free Text) Plan: Assessment systemic viral illness with Influenza, with asthma exacerbation, clinically improving asthma anemia Plan complete 5 days of Tamiflu
== END 2017-11-19 14:07 | disposition home or self-care (01) | DRG 194 ==
LOC: ED 20:08 → ERH 23:39 → 5RSO 11-18 01:36
PROVIDERS: ADMIT Hospitalist; ATTEND Hospitalist
DX: J10.1 Influenza due to other identified influenza virus with other respiratory manifestations (principal); J45.901 Unspecified asthma with (acute) exacerbation; D64.9 Anemia, unspecified; E87.6 Hypokalemia